=== PATIENT | male | born 1985 | race Caucasian/White ===

== ENCOUNTER 2019-07-24 20:28 | Emergency (ER) | payer OTHER ==
[~2019-07-24] VITALS: Ht 172.7 cm; Wt 88.5 kg
[2019-07-24 20:48] VITALS: BP 134/77
[2019-07-24 22:45] VITALS: BP 134/77
== END 2019-07-24 22:45 | disposition home or self-care (01) ==
LOC: MED 20:28
DX: R05 Cough (principal); R09.81 Nasal congestion; R50.9 Fever, unspecified; R09.89 Other specified symptoms and signs involving the circulatory and respiratory systems
CPT/HCPCS: 71045; 99283; Q0092